=== PATIENT | male | born 1940 | race Caucasian/White ===

== ENCOUNTER 2017-10-07 07:02 | Inpatient (IN) | payer MEDICARE ==
[~2017-10-07] VITALS: Ht 175.3 cm; Wt 73.0 kg
[2017-10-07] MEDS ORDERED: LACTATED RINGERS 1,000 ML IV SCH ×2 (07:39→21:00)
[2017-10-07] MEDS ORDERED: SODIUM CHLORIDE 0.9% 1,000 ML IV SCH (07:39)
[2017-10-07 07:41] VITALS: BP 122/75
[2017-10-07] MEDS ORDERED: LIDOCAINE 2%, 20ML ONE (08:15)
[2017-10-07] MEDS: LIDOCAINE 1%, 2ML SQ PRN ×2 (08:30→14:57)
[2017-10-07] MEDS ORDERED: ENOX40SY4 SQ (08:32)
[2017-10-07] MEDS ORDERED: RIVA20TA PO (08:32)
[2017-10-07] MEDS ORDERED: FINA5TAB4 PO (08:32)
[2017-10-07] MEDS ORDERED: OXYC1TAB9 PO (08:32)
[2017-10-07] MEDS ORDERED: OMEP-110 PO (08:32)
[2017-10-07] MEDS ORDERED: CELE200C PO (08:32)
[2017-10-07] MEDS ORDERED: D3 (08:32)
[2017-10-07] MEDS ORDERED: VIT D3 PO (08:32)
[2017-10-07] MEDS ORDERED: MVI PO (08:32)
[2017-10-07] MEDS ORDERED: ALLO300T PO (08:32)
[2017-10-07] MEDS ORDERED: LIDOCAINE GEL 2%, 5ML ONE (08:34)
[2017-10-07 09:22] LABS: ALANINE AMINOTRANSFERASE 21 U/L (12-78); ALBUMIN 3.4 g/dL (3.4-5.0); ANION GAP 7 mmol/L (5-15); CALCIUM 8.7 mg/dL (8.5-10.1); CHLORIDE 111 mmol/L (98-107); CREATININE 1.08 mg/dL (0.7-1.3)
[2017-10-07 09:24] LABS: ALKALINE PHOSPHATASE 122 U/L (45-117); BILIRUBIN,TOTAL 0.6 mg/dL (0.2-1.0)
[2017-10-07] MEDS ORDERED: LIDOCAINE/PF 1%, 30ML ONE (14:04)
[2017-10-07] MEDS ORDERED: PROPOFOL 10 MG/ML, 20ML ONE (14:04)
[2017-10-07] MEDS ORDERED: LIDOCAINE 1%, 2ML ONE (14:04)
[2017-10-07] MEDS ORDERED: NEOSTIGMINE 1 MG/ML, 10ML ONE (14:04)
[2017-10-07] MEDS ORDERED: SUCCINYLCHOLINE 20 MG/ML, 10ML ONE (14:04)
[2017-10-07] MEDS ORDERED: ROCURONIUM 10 MG/ML,10ML ONE (14:04)
[2017-10-07] MEDS ORDERED: ONDANSETRON 2MG/ML, 2ML ONE (14:04)
[2017-10-07] MEDS ORDERED: FENTANYL PF 250 MCG/5ML ONE (14:04)
[2017-10-07] MEDS ORDERED: GLYCOPYRROLATE 0.2MG/1ML, 5ML ONE (14:04)
[2017-10-07] MEDS ORDERED: HYDROmorphone 2 MG/ML, 1ML ONE ×2 (14:04)
[2017-10-07] MEDS ORDERED: MIDAZOLAM 1 MG/ML, 2ML ONE (14:04)
[2017-10-07] MEDS ORDERED: LIDOCAINE-MPF 2% ,5ML ONE (14:04)
[2017-10-07] MEDS ORDERED: OXYcodone 5 MG/5 ML ORAL.SOL UDC PO PRN (15:00)
[2017-10-07] MEDS ORDERED: LABETALOL 5MG/ML, 20ML IV PRN (15:00)
[2017-10-07] MEDS ORDERED: hydrALAzine 20 MG/ML, 1ML IV PRN (15:00)
[2017-10-07] MEDS ORDERED: ONDANSETRON 2MG/ML, 2ML IVPush PRN (15:00)
[2017-10-07] MEDS ORDERED: HYDROmorphone 1 MG/ML, 1ML IV PRN (15:00)
[2017-10-07] MEDS ORDERED: FENTANYL PF 100 MCG/2ML IV PRN (15:00)
[2017-10-07] MEDS ORDERED: HYDROcodone/APAP 7.5-325MG/15ML UDC PO PRN (15:00)
[2017-10-07] MEDS ORDERED: ACETAMINOPHEN 325 MG TABLET PO PRN (15:00)
[2017-10-07] MEDS: NALOXONE 0.4 MG/ML, 1ML IVPush PRN ×3 (18:25→18:50)
[2017-10-07 20:30] VITALS: BP 148/77
[2017-10-07 21:52] LABS: ANION GAP 7 mmol/L (5-15); CALCIUM 8.6 mg/dL (8.5-10.1); CHLORIDE 113 mmol/L (98-107); CREATININE 1.14 mg/dL (0.7-1.3)
[2017-10-07 22:11] LABS: MD YES; MEAN CORPUSCULAR HEMOGLOBIN 26.5 pg (27.5-34.5); MEAN CORPUSCULAR HGB CONC 32.5 g/dL (33.2-36.2); MEAN CORPUSCULAR VOLUME 81.7 fL (81-97); PLATELET COUNT 119 x10^3/uL (130-400); RED BLOOD COUNT 4.96 x10^6/uL (4.38-5.82); RED CELL DISTRIBUTION WIDTH 20.4 % (9.4-14.8)
[2017-10-07 22:13] LABS: BAND#(MANUAL) 0.24 x10^3/uL; BANDS%(MANUAL) 2 % (0-7); EOS#(MANUAL) 0.48 x10^3/uL (0.0-0.4); EOS% (MANUAL) 4 % (1-7); LYMPH#(MANUAL) 0.48 x10^3/uL (1-3.4); LYMPHS% (MANUAL) 4 % (22-44); MONOS#(MANUAL) 0.24 x10^3/uL (0.3-2.7); MONOS% (MANUAL) 2 % (2-9); NRBC % (MANUAL) 1 % (0-1); SEG#(MANUAL) 10.47 x10^3/uL (1.8-6.8); SEGS% (MANUAL) 88 % (42-75)
[2017-10-07 22:14] LABS: <PLATELET ESTIMATE> DECREASED; ANISOCYTOSIS 1+; LARGE PLATELETS 1+
[2017-10-07 22:16] LABS: BIZARRE PLATELETS 1+
[2017-10-07] MEDS: PANTOPRAZOLE 40 MG IV IVPush SCH (22:56)
[2017-10-07 23:37] LABS: ANION GAP 8 mmol/L (5-15); CALCIUM 8.6 mg/dL (8.5-10.1); CHLORIDE 113 mmol/L (98-107); CREATININE 1.06 mg/dL (0.7-1.3)
[2017-10-08 00:13] VITALS: BP 131/72
[2017-10-08 04:10] VITALS: BP 134/74
[2017-10-08 06:00] LABS: BASOPHILS # (AUTO) 0.01 x10^3/uL (0-0.1); BASOPHILS % (AUTO) 0 % (0-1); EOSINOPHILS # (AUTO) 0.02 x10^3/uL (0-0.4); EOSINOPHILS % (AUTO) 0 % (1-7); LYMPHOCYTES # (AUTO) 0.45 x10^3/uL (1-3.4); LYMPHOCYTES % (AUTO) 4 % (22-44); MD NO; MEAN CORPUSCULAR HEMOGLOBIN 26.2 pg (27.5-34.5); MEAN CORPUSCULAR HGB CONC 31.8 g/dL (33.2-36.2); MEAN CORPUSCULAR VOLUME 82.1 fL (81-97); MEAN PLATELET VOLUME 10.6 fL (7.4-10.4); MONOCYTES # (AUTO) 0.39 x10^3/uL (0.2-0.8); MONOCYTES % (AUTO) 3 % (2-9); NEUTROPHILS # (AUTO) 10.52 x10^3/uL (1.8-6.8); NEUTROPHILS % (AUTO) 92 % (42-75); PLATELET COUNT 131 x10^3/uL (130-400); RED BLOOD COUNT 4.83 x10^6/uL (4.38-5.82); RED CELL DISTRIBUTION WIDTH 20.5 % (9.4-14.8)
[2017-10-08] MEDS: MORPHINE SULFATE 4 MG/ML, 1ML IV PRN ×4 (06:09→18:38)
[2017-10-08 06:15] LABS: CALCIUM 8.5 mg/dL (8.5-10.1); CHLORIDE 112 mmol/L (98-107)
[2017-10-08 06:19] LABS: ANION GAP 8 mmol/L (5-15)
[2017-10-08 08:00] VITALS: BP 164/89
[2017-10-08] MEDS ORDERED: FINASTERIDE 5 MG TABLET PO SCH (09:00)
[2017-10-08] MEDS: OXYcodone/APAP 7.5/325MG TABLET PO PRN ×3 (09:34→21:25)
[2017-10-08] MEDS: ALLOPURINOL 300 MG TABLET PO SCH (09:34)
[2017-10-08] MEDS: PANTOPRAZOLE 40 MG IV IVPush SCH ×2 (09:35→21:08)
[2017-10-08] MEDS ORDERED: LACTATED RINGERS 1,000 ML IV SCH (10:30)
[2017-10-08 12:05] VITALS: BP 87/46
[2017-10-08] MEDS: CEFAZOLIN PMX 1GM/50ML 50 ML IVPB SCH ×2 (15:05→23:04)
[2017-10-08 16:21] VITALS: BP 113/57
[2017-10-08] MEDS: FINASTERIDE 5 MG TABLET PO SCH (18:33)
[2017-10-08] MEDS: MUPIROCIN OINT 2%, 22GM TP SCH (21:08)
[2017-10-08] MEDS: GUAIFENESIN 100 MG/5 ML, 10ML UDC PO SCH (21:08)
[2017-10-08 22:58] VITALS: BP 128/70
[2017-10-09 03:00] VITALS: BP 134/73
[2017-10-09] MEDS: OXYcodone/APAP 7.5/325MG TABLET PO PRN ×2 (03:03→13:40)
[2017-10-09] MEDS: GUAIFENESIN 100 MG/5 ML, 10ML UDC PO SCH ×5 (06:37→21:05)
[2017-10-09] MEDS: CEFAZOLIN PMX 1GM/50ML 50 ML IVPB SCH ×3 (06:37→23:27)
[2017-10-09 07:57] VITALS: BP 142/72
[2017-10-09] MEDS ORDERED: FINASTERIDE 5 MG TABLET PO SCH (09:00)
[2017-10-09] MEDS: MORPHINE SULFATE 4 MG/ML, 1ML IV PRN (09:26)
[2017-10-09] MEDS: LACTATED RINGERS 1,000 ML IV SCH ×2 (09:30→18:31)
[2017-10-09] MEDS: MUPIROCIN OINT 2%, 22GM TP SCH ×2 (09:31→21:05)
[2017-10-09] MEDS: ALLOPURINOL 300 MG TABLET PO SCH (09:31)
[2017-10-09] MEDS: PANTOPRAZOLE 40 MG IV IVPush SCH ×2 (09:31→21:05)
[2017-10-09] MEDS ORDERED: LACTATED RINGERS 1,000 ML IV SCH (10:30)
[2017-10-09] MEDS ORDERED: MAGNESIUM CITRATE 300ML ORAL SOL PO PRN (11:00)
[2017-10-09] MEDS ORDERED: LACTULOSE 20 GM/30 ML UDC PO PRN (11:00)
[2017-10-09] MEDS ORDERED: BISACODYL 10 MG SUPP PR PRN (11:00)
[2017-10-09] MEDS ORDERED: POLYETHYLENE GLYCOL 17 GM PACKET PO PRN (11:00)
[2017-10-09 14:00] VITALS: BP 100/63
[2017-10-09] MEDS ORDERED: METHYLNALTREXONE 12 MG/0.6 ML SQ ONE (17:30)
[2017-10-09] MEDS: FINASTERIDE 5 MG TABLET PO SCH (18:23)
[2017-10-09 19:31] VITALS: BP 113/71
[2017-10-09] MEDS: SENNA/DOCUSATE TABLET PO SCH (21:00)
[2017-10-10 01:12] VITALS: BP 139/84
[2017-10-10 05:09] LABS: BASOPHILS # (AUTO) 0.03 x10^3/uL (0-0.1); BASOPHILS % (AUTO) 0 % (0-1); EOSINOPHILS # (AUTO) 0.34 x10^3/uL (0-0.4); EOSINOPHILS % (AUTO) 4 % (1-7); LYMPHOCYTES # (AUTO) 0.78 x10^3/uL (1-3.4); LYMPHOCYTES % (AUTO) 9 % (22-44); MD NO; MEAN CORPUSCULAR HEMOGLOBIN 26.1 pg (27.5-34.5); MEAN CORPUSCULAR HGB CONC 31.7 g/dL (33.2-36.2); MEAN CORPUSCULAR VOLUME 82.4 fL (81-97); MEAN PLATELET VOLUME 9.6 fL (7.4-10.4); MONOCYTES # (AUTO) 0.53 x10^3/uL (0.2-0.8); MONOCYTES % (AUTO) 6 % (2-9); NEUTROPHILS # (AUTO) 6.66 x10^3/uL (1.8-6.8); NEUTROPHILS % (AUTO) 80 % (42-75); PLATELET COUNT 119 x10^3/uL (130-400); RED BLOOD COUNT 4.48 x10^6/uL (4.38-5.82); RED CELL DISTRIBUTION WIDTH 20.5 % (9.4-14.8)
[2017-10-10 05:14] LABS: ANION GAP 5 mmol/L (5-15); CALCIUM 8.1 mg/dL (8.5-10.1); CHLORIDE 108 mmol/L (98-107)
[2017-10-10] MEDS: CEFAZOLIN PMX 1GM/50ML 50 ML IVPB SCH (06:32)
[2017-10-10] MEDS: OXYcodone/APAP 7.5/325MG TABLET PO PRN ×3 (06:45→22:44)
[2017-10-10] MEDS: GUAIFENESIN 100 MG/5 ML, 10ML UDC PO SCH ×5 (06:50→20:28)
[2017-10-10 08:00] VITALS: BP 129/70
[2017-10-10] MEDS: DOCUSATE 50 MG/5 ML, 10ML UDC NG SCH (09:10)
[2017-10-10] MEDS: ALLOPURINOL 300 MG TABLET PO SCH (09:16)
[2017-10-10] MEDS: PANTOPRAZOLE 40 MG IV IVPush SCH (09:17)
[2017-10-10] MEDS: MUPIROCIN OINT 2%, 22GM TP SCH ×2 (09:17→20:29)
[2017-10-10] MEDS: ENOXAPARIN 40 MG/0.4 ML SQ SCH (11:42)
[2017-10-10] MEDS: LACTATED RINGERS 1,000 ML IV SCH ×2 (13:02→23:00)
[2017-10-10 14:00] VITALS: BP 166/77
[2017-10-10] MEDS: FINASTERIDE 5 MG TABLET PO SCH (17:26)
[2017-10-10] MEDS: PANTOPROZOLE 40MG TABLET PO SCH (17:26)
[2017-10-10 19:02] VITALS: BP 150/69
[2017-10-10] MEDS: AMOXICILLIN 250 MG/5 ML, ORAL SUSP PO SCH (20:27)
[2017-10-10] MEDS: SENNA/DOCUSATE TABLET PO SCH (20:28)
[2017-10-11 01:24] VITALS: BP 146/81
[2017-10-11 07:02] VITALS: BP 154/82
[2017-10-11] MEDS: GUAIFENESIN 100 MG/5 ML, 10ML UDC PO SCH ×2 (07:44→08:56)
[2017-10-11] MEDS: PANTOPROZOLE 40MG TABLET PO SCH (07:54)
[2017-10-11] MEDS: OXYcodone/APAP 7.5/325MG TABLET PO PRN ×2 (07:54→14:09)
[2017-10-11] MEDS: MUPIROCIN OINT 2%, 22GM TP SCH (08:56)
[2017-10-11] MEDS: DOCUSATE 50 MG/5 ML, 10ML UDC NG SCH (08:56)
[2017-10-11] MEDS: ALLOPURINOL 300 MG TABLET PO SCH (08:57)
[2017-10-11] MEDS: AMOXICILLIN 250 MG/5 ML, ORAL SUSP PO SCH (08:57)
[2017-10-11] MEDS: LACTATED RINGERS 1,000 ML IV SCH (09:00)
[2017-10-11] MEDS ORDERED: LACT-23 PO (10:40)
[2017-10-11] MEDS: ENOXAPARIN 40 MG/0.4 ML SQ SCH (11:23)
[2017-10-11 13:03] VITALS: BP 144/74
[2017-10-11] MEDS ORDERED: OXYC-306 PO (13:07)
== END 2017-10-11 14:10 | DRG 821 ==
LOC: ORIP 07:02 → 4NOR 20:00
PROVIDERS: ADMIT Otolaryngology; ATTEND Otolaryngology
PROC: 0CBM0ZZ Excision of Pharynx, Open Approach (ICD-10-PCS; 2017-10-07)
PROC: 0DH63UZ Insertion of Feeding Device into Stomach, Percutaneous Approach (ICD-10-PCS; principal; 2017-10-07 14:00)
PROC: 07T10ZZ Resection of Right Neck Lymphatic, Open Approach (ICD-10-PCS; 2017-10-07 14:00)
DX: C77.0 Secondary and unspecified malignant neoplasm of lymph nodes of head, face and neck (principal); D62 Acute posthemorrhagic anemia; I95.9 Hypotension, unspecified; D69.6 Thrombocytopenia, unspecified; E87.5 Hyperkalemia; C02.9 Malignant neoplasm of tongue, unspecified; J44.0 Chronic obstructive pulmonary disease with (acute) lower respiratory infection; C09.9 Malignant neoplasm of tonsil, unspecified; E29.1 Testicular hypofunction; E78.5 Hyperlipidemia, unspecified; I71.4 Abdominal aortic aneurysm, without rupture; Z96.1 Presence of intraocular lens; F41.9 Anxiety disorder, unspecified; I73.9 Peripheral vascular disease, unspecified; K14.9 Disease of tongue, unspecified; K21.9 Gastro-esophageal reflux disease without esophagitis; M1A.9XX0 Chronic gout, unspecified, without tophus (tophi); N40.0 Benign prostatic hyperplasia without lower urinary tract symptoms; Z23 Encounter for immunization; Z79.01 Long term (current) use of anticoagulants; Z79.899 Other long term (current) drug therapy; Z85.46 Personal history of malignant neoplasm of prostate; Z85.818 Personal history of malignant neoplasm of other sites of lip, oral cavity, and pharynx; Z86.711 Personal history of pulmonary embolism; Z86.718 Personal history of other venous thrombosis and embolism; Z87.891 Personal history of nicotine dependence; Z98.42 Cataract extraction status, left eye; Z98.41 Cataract extraction status, right eye; Z88.8 Allergy status to other drugs, medicaments and biological substances; Z88.5 Allergy status to narcotic agent
CPT/HCPCS: 36415; 49440; 80048; 80053; 85025; 86850; 86900; 88305; 88307; 93005; 99156; 99157; C1725; C1729; J0171; J0690; J1100; J1170; J1650; J2250; J2310; J2405; J2704; J2710; J3010; J3490; C1760; C1769; C9113; J0330; J7030; J7120